=== PATIENT | male | born 1970 | race Caucasian/White ===

== ENCOUNTER 2021-12-11 12:11 | Emergency (ER) | payer SELFPAY ==
[~2021-12-11] VITALS: Ht 185.4 cm; Wt 87.3 kg
--- NOTE | 2021-12-11 12:38 | ED.ADGEN ---
General Adult EDM: Chief Complaint: WRIST PAIN HPI: HPI: Patient is a 51-year-old male who arrives ambulatory to the emergency department complaining of an injury to his left wrist. Patient reports he slid on the ice and landed awkwardly on his left wrist. Patient states he has developed swelling since that time. Patient has concerns because he has broken his wrists multiple times previously and wants to have this evaluated. Despite the patient's injury he denies any significant pain. He further states that he is right-hand dominant and did not sustain any other injuries. However the patient is unable to describe exactly how the injury took place because it happened so quickly. He is awake, alert and nontoxic-appearing otherwise. Review of Systems: Review of Systems: Constitutional: Denies fever or chills. [] Eyes: Denies change in visual acuity. [] HENT: Denies nasal congestion or sore throat. [] Respiratory: Denies cough or shortness of breath. [] Cardiovascular: Denies chest pain or edema. [] GI: Denies abdominal pain, nausea, vomiting, bloody stools or diarrhea. [] : Denies dysuria. [] Musculoskeletal: Reports extremity/joint swelling at left wrist. Denies back pain or joint pain. [] Integument: Denies rash. [] Neurologic: Denies headache, focal weakness or sensory changes. [] Endocrine: Denies polyuria or polydipsia. [] Lymphatic: Denies swollen glands. [] Psychiatric: Denies depression or anxiety. [] Allergies: Allergies: Allergies Coded Allergies Type Severity Reaction Last Updated Verified No Known Drug Allergies 12/11/21 No Physical Exam: PE: Constitutional: Well developed, well nourished, no acute distress, non-toxic appearance. [] HENT: Normocephalic, atraumatic, bilateral external ears normal, oropharynx moist, no oral exudates, nose normal. [] Eyes: PERRLA, EOMI, conjunctiva normal, no discharge. [] Neck: Normal range of motion, no tenderness, supple, no stridor. [] Cardiovascular:Heart rate regular rhythm, no murmur [] Lungs & Thorax: Bilateral breath sounds clear to auscultation [] Abdomen: Bowel sounds normal, soft, no tenderness, no masses, no pulsatile masses. [] Skin: Warm, dry, no erythema, no rash. [] Back: No tenderness, no CVA tenderness. [] Extremities: Patient has notable swelling of the dorsal aspect of his left wrist. He does have full range of motion of the left wrist. He is without tenderness palpation of the left hand or left forearm. No cyanosis, no clubbing, ROM intact, no edema. [] Neurologic: Alert and oriented X 3, normal motor function, normal sensory function, no focal deficits noted. [] Psychologic: Affect normal, judgement normal, mood normal. [] Current Patient Data: Vital Signs: Vital Signs Date Time Temp Pulse Resp B/P (MAP) Pulse Ox O2 Delivery O2 Flow Rate FiO2 12/11/21 12:16 97.9 72 16 143/82 (102) 99 Room Air 97.9 EKG: EKG: [] Heart Score: C/O Chest Pain: No Risk Factors: Risk Factors: DM, Current or recent (<one month) smoker, HTN, HLP, family history of CAD, obesity. Risk Scores: Score 0 - 3: 2.5% MACE over next 6 weeks - Discharge Home Score 4 - 6: 20.3% MACE over next 6 weeks - Admit for Clinical Observation Score 7 - 10: 72.7% MACE over next 6 weeks - Early Invasive Strategies Radiology/Procedures: Radiology/Procedures: [][facility] [address] [place] [address] IMAGING REPORT Signed PATIENT: TIM MCCARTHY ACCOUNT: [id number] : 1970 LOCATION: ER AGE: 51 SEX: M EXAM STATUS: REG ER ORD. PHYSICIAN: TRACEY DAY DO REASON: pain after fall PROCEDURE: WRIST 3V LEFT XR LT WRIST 3VIEWS History: Reason: pain after fall / Spl. Instructions: / History: Technique: 3 views left wrist Comparison: None. Findings: Chronic ununited ulnar styloid fracture. Well-corticated ossification adjacent to the distal radius, likely related to prior trauma. No dislocation. No acute fracture. Chronic deformity of the distal radius. Impression: 1. No acute osseous abnormality. Electronically signed by: Ravinder Dodd DO (12/11/2021 1:27 PM) [id number] DICTATED and SIGNED BY: RAVINDER DODD DO DATE: 12/11/21 [id number] Course & Med Decision Making: Course & Med Decision Making Pertinent Labs and Imaging studies reviewed. (See chart for details) [] Dragon Disclaimer: Marycarmen Disclaimer: This electronic medical record was generated, in whole or in part, using a voice recognition dictation system. Departure Departure Impression: Primary Impression: Left wrist sprain Disposition: HOME / SELF CARE / HOMELESS Condition: STABLE Referrals: NO PCP (PCP) Patient Instructions: Wrist Sprain with [facility] TRACEY DAY DO Dec 11, 2021 12:38
--- NOTE | 2021-12-11 13:29 | RAD ---
XR LT WRIST 3VIEWS History: Reason: pain after fall / Spl. Instructions: / History: Technique: 3 views left wrist Comparison: None. Findings: Chronic ununited ulnar styloid fracture. Well-corticated ossification adjacent to the distal radius, likely related to prior trauma. No dislocation. No acute fracture. Chronic deformity of the distal ra dius. Impression: 1. No acute osseous abnormality. Electronically signed by: Ravinder Delaney DO (12/11/2021 1:27 PM) [id number]
[2021-12-11 14:16] VITALS: BP 139/79
== END 2021-12-11 14:20 | disposition home or self-care (01) ==
LOC: ER 12:11
DX: S63.502A Unspecified sprain of left wrist, initial encounter (principal); W00.0XXA Fall on same level due to ice and snow, initial encounter; Y93.89 Activity, other specified; Y92.89 Other specified places as the place of occurrence of the external cause; Y99.8 Other external cause status
CPT/HCPCS: 73120; 99283